=== PATIENT | female | born 1960 | race Caucasian/White ===

== ENCOUNTER → 2016-03-22 | Outpatient (CLI) | payer BC ==
[~2016-03-22] MED LIST: CLON0.5T3 PO; ESTR0.3T PO; FLUO20CA35 PO; NITR1CAP32 PO; POTA-327 PO; PRLSR20 PO; TRIATAB3 PO
[2016-03-22 09:46] LABS: BASO % 0.3 %; BASO ABS # 0.02 K/uL (0-0.2); COMPLETE YES; EOS % 0.7 %; HEMATOCRIT 37.7 % (37-47); IG% 0.1 %; LYMPH ABS # 1.85 K/uL (1.2-3.4); MEAN CELL VOLUME 83.2 fL (80-100); MEAN CORPUSCULAR HGB CONC 33.7 g/dl (32-36); MEAN PLATELET VOLUME 10.3 fL (7.4-10.4); MONO % 8.8 %; NEUT % 65.1 %; PLATELET COUNT 278 K/uL (130-400); RED BLOOD COUNT 4.53 M/uL (4.2-5.4); WHITE BLOOD COUNT 7.39 K/uL (4.8-10.8)
[2016-03-22 10:20] LABS: FERRITIN 7.7 ng/ml (8.0-388.0)
== END | disposition home or self-care (01) ==
LOC: C.LAB 08:15
PROVIDERS: ATTEND Internal Medicine Hematology
DX: D50.9 Iron deficiency anemia, unspecified (principal); Z98.890 Other specified postprocedural states

== ENCOUNTER → 2016-04-27 | Outpatient (CLI) | payer BC ==
--- NOTE | 2016-04-27 08:16 | DIAGNOSTIC IMAGING REPORT ---
CT LUNG SCREENING, LOW DOSE WITH COMPUTER-AIDED DETECTION (CAD) CLINICAL HISTORY: LUNG CA COMPARISON STUDY: 05/10/2015 CT DOSE: 83.74 mGy.cm TECHNIQUE: Low-dose helical CT was acquired without intravenous contrast from lung apices to bases and reconstructed at 2.5 mm every 2 mm. CAD was utilized for this study. FINDINGS: Thyroid: Imaged portions of the thyroid gland are normal in appearance. Thoracic aorta: The thoracic aorta is normal in course and caliber, noting standard 3 vessel arch anatomy. Heart: There are minimal coronary artery calcifications present. Lungs and pleural spaces: There are no pleural effusions. There are postsurgical changes of a prior right upper lobectomy. There is a left lower lobe 2 mm calcified granuloma abutting the fissure. There is a stable 1.5 mm right upper lobe pulmonary nodule, likely postinflammatory. No suspicious bony nodules are visualized. Mediastinum: There is no mediastinal lymphadenopathy. Carolin: Clear. Axilla: Clear. Upper abdomen: No adrenal masses are visualized. The left adrenal gland is not visualized in its entirety. There are postsurgical changes involve the stomach. Skeletal structures: There are no lytic or blastic osseous lesions. IMPRESSION: No evidence of recurrent lung carcinoma. CAD FINDINGS: Overall Lung RADS Category: 1 Lung RADS Management Recommendation: Lung-RADS 1: Continue annual screening in 12 months. Lung RADS Follow Up Date: 2017-04-27 Lung RADS Nodule ID: Electronically signed by: Spike Terry M.D. 04/27/2016 8:14 AM Dictated Date/Time: 04/27/2016 8:07 AM
== END | disposition home or self-care (01) ==
LOC: C.CTS 06:33
PROVIDERS: ATTEND Internal Medicine Hematology
DX: C34.11 Malignant neoplasm of upper lobe, right bronchus or lung (principal)

== ENCOUNTER → 2016-05-18 | Outpatient (CLI) | payer BC ==
[2016-05-18 09:56] LABS: ESTIMATED AVERAGE GLUCOSE 111 mg/dl; HA1C FLAG Normal (Normal)
[2016-05-18 10:05] LABS: BLOOD UREA NITROGEN 14 mg/dl (7-18); BUN/CREATININE RATIO 16.6 (10-20); CALCIUM 9.2 mg/dl (8.5-10.1); CARBON DIOXIDE 33 mmol/L (21-32); CHLORIDE 101 mmol/L (98-107); CREATININE 0.85 mg/dl (0.60-1.20); GLUCOSE 95 mg/dl (70-99); POTASSIUM 3.4 mmol/L (3.5-5.1); SODIUM 142 mmol/L (136-145)
[2016-05-18 10:36] LABS: RATIO 5.7 mcg/mg (0-30.0)
== END | disposition home or self-care (01) ==
LOC: C.LAB 07:10
PROVIDERS: ATTEND Internal Medicine
DX: E11.9 Type 2 diabetes mellitus without complications (principal); I10 Essential (primary) hypertension

== ENCOUNTER → 2016-06-02 | Outpatient (CLI) | payer BC ==
[2016-06-02 16:20] LABS: BASO % 0.2 %; BASO ABS # 0.02 K/uL (0-0.2); EOS % 0.9 %; HEMATOCRIT 39.6 % (37-47); IG% 0.2 %; LYMPH % 27.1 %; LYMPH ABS # 2.44 K/uL (1.2-3.4); MEAN CELL VOLUME 83.4 fL (80-100); MEAN CORPUSCULAR HEMOGLOBIN 28.8 pg (25-34); MEAN PLATELET VOLUME 10.2 fL (7.4-10.4); MONO % 8.5 %; NEUT % 63.1 %; PLATELET COUNT 234 K/uL (130-400); RED BLOOD COUNT 4.75 M/uL (4.2-5.4); WHITE BLOOD COUNT 8.99 K/uL (4.8-10.8)
[2016-06-02 16:24] LABS: COMPLETE YES; MEAN CORPUSCULAR HGB CONC 34.6 g/dl (32-36)
== END | disposition home or self-care (01) ==
LOC: C.LAB 15:59
PROVIDERS: ATTEND Internal Medicine Hematology
DX: D50.9 Iron deficiency anemia, unspecified (principal)

== ENCOUNTER → 2016-07-03 | Outpatient (CLI) | payer BC | END | disposition home or self-care (01) | LOC: C.LABSPEC 17:16 | PROVIDERS: ATTEND Internal Medicine Endocrinology, Diabetes & Metabolism | DX: N39.0 Urinary tract infection, site not specified (principal) ==

== ENCOUNTER → 2016-09-04 | Outpatient (CLI) | payer BC | END | disposition home or self-care (01) | LOC: C.LAB 08:33 | PROVIDERS: ATTEND Nurse Practitioner Adult Health | DX: N39.0 Urinary tract infection, site not specified (principal) ==

== ENCOUNTER → 2016-09-11 | Outpatient (CLI) | payer BC ==
--- NOTE | 2016-09-12 07:41 | MAMMOGRAPHY REPORT ---
BILATERAL DIGITAL SCREENING MAMMOGRAM TOMOSYNTHESIS WITH CAD: 09/11/2016 CLINICAL HISTORY: Routine screening. Patient has no complaints. TECHNIQUE: Breast tomosynthesis in addition to standard 2D mammography was performed. Current study was also evaluated with a Computer Aided Detection (CAD) system. COMPARISON: Comparison is made to exams dated: 09/03/2015 mammogram, 08/31/2014 mammogram, 08/22/2013 hair mogram, 08/21/2012 mammogram, 08/21/2011 mammogram, and 08/18/2010 mammogram - [facility]. BREAST COMPOSITION: There are scattered areas of fibroglandular density in both breasts. FINDINGS: Again noted are multiple bilateral circumscribed sub-centimeters masses scattered throughou t the breasts, not significantly changed compared to prior exams. There are scattered and grouped bi lateral benign-appearing calcifications, many of which demonstrate layering on the MLO views, suggest ing benign milk of calcium. No new suspicious mass, architectural distortion or cluster of microcalc ifications is seen. IMPRESSION: ACR BI-RADS CATEGORY 1: NEGATIVE There is no mammographic evidence of malignancy. A 1 year screening mammogram is recommended. The pa tient will receive written notification of the results. Approximately 10% of breast cancers are not detected with mammography. A negative mammographic report should not delay biopsy if a clinically suggestive mass is present. Alexandrea Coates M.D. ay/:09/11/2016 17:38:27 Photolith Operator: Ashleigh BROWN(Teddy)(Oracio), [facility] letter sent: Normal 1/2 BI-RADS Code: ACR BI-RADS Category 1: Negative
== END | disposition home or self-care (01) ==
LOC: C.MAMM 12:05
PROVIDERS: ATTEND Internal Medicine
DX: Z12.31 Encounter for screening mammogram for malignant neoplasm of breast (principal)

== ENCOUNTER → 2016-09-26 | Outpatient (CLI) | payer BC | END | disposition home or self-care (01) | LOC: C.LAB 13:34 | PROVIDERS: ATTEND Nurse Practitioner Adult Health | DX: N39.0 Urinary tract infection, site not specified (principal) ==

== ENCOUNTER → 2016-11-30 | Outpatient (CLI) | payer BC ==
[2016-11-30 10:10] LABS: BASO % 0.2 %; BASO ABS # 0.01 K/uL (0-0.2); COMPLETE YES; EOS % 0.5 %; HEMATOCRIT 40.2 % (37-47); IG% 0.2 %; LYMPH % 32.9 %; LYMPH ABS # 2.12 K/uL (1.2-3.4); MEAN CELL VOLUME 86.6 fL (80-100); MEAN CORPUSCULAR HEMOGLOBIN 29.1 pg (25-34); MEAN CORPUSCULAR HGB CONC 33.6 g/dl (32-36); MEAN PLATELET VOLUME 10.2 fL (7.4-10.4); NEUT % 59.2 %; PLATELET COUNT 203 K/uL (130-400); RED BLOOD COUNT 4.64 M/uL (4.2-5.4); WHITE BLOOD COUNT 6.45 K/uL (4.8-10.8)
== END | disposition home or self-care (01) ==
LOC: C.LAB 09:14
PROVIDERS: ATTEND Internal Medicine Hematology
DX: C34.11 Malignant neoplasm of upper lobe, right bronchus or lung (principal); D50.9 Iron deficiency anemia, unspecified; Z98.890 Other specified postprocedural states

== ENCOUNTER → 2016-12-18 | Outpatient (CLI) | payer BC | END | disposition home or self-care (01) | LOC: C.LABSPEC 18:06 | PROVIDERS: ATTEND Nurse Practitioner Family | DX: N39.0 Urinary tract infection, site not specified (principal) ==

== ENCOUNTER → 2017-04-30 | Outpatient (CLI) | payer OTHER ==
--- NOTE | 2017-04-30 12:40 | DIAGNOSTIC IMAGING REPORT ---
CT LUNG SCREENING, LOW DOSE WITH COMPUTER-AIDED DETECTION (CAD) CLINICAL HISTORY: 56 years-old Female presenting with RT UPPER LOBE MALIGNANT NEOPLASMS. CT DOSE (mGy.cm): The estimated cumulative dose is 78.37 mGy.cm. TECHNIQUE: Low-dose helical CT was acquired without intravenous contrast from lung apices to bases and reconstructed at 2.5 mm every 2 mm. Computer-Aided detection (CAD) was utilized for this study. A dose lowering technique was used consistent with the principles of ALARA (as low as reasonably achievable). COMPARISON: No previous studies for comparison. FINDINGS: Signal Circuit Designer topogram: Unremarkable. On soft tissue windows, normal thyroid and thoracic inlet. No axillary, supraclavicular, or mediastinal lymphadenopathy. Evaluation of the olamide limited without intravenous contrast. Atherosclerosis of the aorta. Normal heart size. No pericardial or pleural effusion. Upper abdomen normal. On lung windows, postsurgical changes of right upper lobectomy. No focal infiltrate or nodule. Central airways patent. On bone windows, normal osseous structures. CAD FINDINGS: Overall Lung RADS Category: 1 Lung RADS Management Recommendation: Continue annual lung cancer screening. Lung RADS Follow Up Date: 2018-04-30 Lung RADS Nodule ID: IMPRESSION: 1. Postsurgical changes of right upper lobectomy without evidence of recurrent disease or new nodule. Annual lung cancer screening recommended. Electronically signed by: Javi Caceres M.D. 04/30/2017 12:39 PM Dictated Date/Time: 04/30/2017 9:30 AM
== END | disposition home or self-care (01) ==
LOC: C.CTS 09:17
PROVIDERS: ATTEND Internal Medicine Hematology
DX: C34.11 Malignant neoplasm of upper lobe, right bronchus or lung (principal)

== ENCOUNTER → 2017-06-19 | Outpatient (CLI) | payer OTHER ==
[2017-06-19 11:43] LABS: BASO % 0.1 %; BASO ABS # 0.01 K/uL (0-0.2); EOS % 0.2 %; EOS ABS # 0.02 K/uL (0-0.5); HEMATOCRIT 41.1 % (37-47); HEMOGLOBIN 13.9 g/dL (12.0-16.0); IG# 0.02 K/uL (0.00-0.02); LYMPH % 23.3 %; MEAN CELL VOLUME 87.4 fL (80-100); MEAN CORPUSCULAR HEMOGLOBIN 29.6 pg (25-34); MONO % 11.2 %; MONO ABS # 0.91 K/uL (0.11-0.59); PLATELET COUNT 196 K/uL (130-400); RED CELL DISTRIBUTION WIDTH CV 13.2 % (11.5-14.5); RED CELL DISTRIBUTION WIDTH SD 42.5 fL (36.4-46.3); WHITE BLOOD COUNT 8.16 K/uL (4.8-10.8)
[2017-06-19 11:45] LABS: MEAN CORPUSCULAR HGB CONC 33.8 g/dl (32-36)
== END | disposition home or self-care (01) ==
LOC: C.LAB 11:24
PROVIDERS: ATTEND Internal Medicine Hematology
DX: C34.11 Malignant neoplasm of upper lobe, right bronchus or lung (principal); Z98.84 Bariatric surgery status; D50.9 Iron deficiency anemia, unspecified

== ENCOUNTER 2017-06-29 19:37 | Emergency (ER) | payer OTHER ==
[~2017-06-29] VITALS: Ht 167.6 cm; Wt 78.9 kg
[2017-06-29 19:40] VITALS: TEMP 36.7; Ht 167.6 cm; Wt 78.9 kg
[2017-06-29] MEDS ORDERED: DiphenhydrAMINE HCL 50 MG/ML VIAL IV STA (20:12)
[2017-06-29] MEDS ORDERED: METOCLOPRAMIDE HCL INJ 5 MG/ML 2 ML VIAL IV STA (20:12)
[2017-06-29] MEDS ORDERED: SODIUM CHLORIDE 0.9% 1000ML 2,000 ML IV STA (20:12)
[2017-06-29 20:57] LABS: BASO % 0.2 %; BASO ABS # 0.01 K/uL (0-0.2); EOS % 0.6 %; EOS ABS # 0.04 K/uL (0-0.5); HEMATOCRIT 40.3 % (37-47); IG# 0.01 K/uL (0.00-0.02); LYMPH % 35.8 %; LYMPH ABS # 2.29 K/uL (1.2-3.4); MEAN CELL VOLUME 85.6 fL (80-100); MEAN CORPUSCULAR HEMOGLOBIN 29.7 pg (25-34); MEAN CORPUSCULAR HGB CONC 34.7 g/dl (32-36); MEAN PLATELET VOLUME 9.9 fL (7.4-10.4); MONO % 9.1 %; MONO ABS # 0.58 K/uL (0.11-0.59); NEUT % 54.1 %; NEUT ABS # 3.46 K/uL (1.4-6.5); PLATELET COUNT 194 K/uL (130-400); RED CELL DISTRIBUTION WIDTH CV 12.9 % (11.5-14.5); RED CELL DISTRIBUTION WIDTH SD 40.7 fL (36.4-46.3); WHITE BLOOD COUNT 6.39 K/uL (4.8-10.8)
[2017-06-29 21:16] LABS: ALBUMIN 3.8 gm/dl (3.4-5.0); ALT/SGPT 23 U/L (12-78); AST/SGOT 18 U/L (15-37); BLOOD UREA NITROGEN 17 mg/dl (7-18); CALCIUM 8.8 mg/dl (8.5-10.1); CARBON DIOXIDE 31 mmol/L (21-32); CREATININE 1.08 mg/dl (0.60-1.20); GLUCOSE 176 mg/dl (70-99); LIPASE 310 U/L (73-393); POTASSIUM 3.4 mmol/L (3.5-5.1); SODIUM 139 mmol/L (136-145)
--- NOTE | 2017-06-29 21:18 | DIAGNOSTIC IMAGING REPORT ---
HEAD WITHOUT CONTRAST (CT) CLINICAL HISTORY: 56 years-old Female with Headache. Acute headache. TECHNIQUE: Multiple axial CT images of the head were obtained without contrast. A dose lowering technique was utilized adhering to the principles of ALARA. CT DOSE: 612.73 mGy.cm COMPARISON: CT head 11/27/2012. FINDINGS: No acute intracranial hemorrhage, midline shift, intracranial mass, hydrocephalus, territorial ischemia or abnormal extra-axial collection. The calvarium is intact. The paranasal sinuses, mastoid air cells, and middle ear cavities are clear. IMPRESSION: No acute intracranial abnormality. The above report was generated using voice recognition software. It may contain grammatical, syntax or spelling errors. Electronically signed by: Edin Starks M.D. 06/29/2017 9:17 PM Dictated Date/Time: 06/29/2017 9:15 PM
[2017-06-29 21:19] LABS: ALKALINE PHOSPHATASE 61 U/L (45-117)
[2017-06-29] MEDS ORDERED: DEXAMETHASONE **PF** INJ 10 MG/ML VIAL IV ONE (22:00)
--- NOTE | 2017-06-29 22:00 | EMERGENCY ROOM VISIT NOTE ---
History Report prepared by Bang: Oly Naqvi Under the Supervision of: Dr. Tashi Blanc M.D. First contact with patient: 20:09 Chief Complaint: HEADACHE Stated Complaint: SEVERE HEADACHE History of Present Illness The patient is a 56 year old female who presents to the Emergency Room with complaints of worsening headache starting 0800 this morning. The pain started while she was sitting at her desk at work. She did not have any pain when she woke up. The headache gradually worsened. She is now having intermittent sharp pain in the right side of her head into her right ear every 8-10 seconds. She denies any history of headaches. She has been taking Tylenol all day to no significant relief. The light does not bother her. She has been feeling fatigued for the past week. She denies any cough, nasal congestion, urinary symptoms, chest pain, or SOB. She has a history of hypertension, anxiety, lung cancer, cholecystectomy, and hysterectomy. She has been 5 years without cancer. She notes that she was exposed to high radon in the past. She is a former smoker. She had blood work last week which showed high monocytes. She drinks a glass of wine twice a week. She has been drinking plenty of water. Source of History: patient Onset: 0800 Position: head Quality: sharp Timing: worsening Associated Symptoms: No cough, No chest pain, No SOB, No urinary symptoms Note: Pt reports right ear pain. Review of Systems See HPI for pertinent positives and negatives. A total of ten systems were reviewed and were otherwise negative. Past Medical & Surgical Medical Problems: (1) Appendectomy (2) Benign hypertension (3) Cholecystectomy (4) Non-small cell lung cancer (5) pneumonectomy(right upper lobe) Family History Diabetes mellitus FH: cancer FH: heart disease Gout Hypertension Kidney disease Kidney stones Social History Smoking Status: Never Smoker Alcohol Use: occasionally Marital Status: Housing Status: lives with significant other Occupation Status: employed Current/Historical Medications Scheduled Estrogens, Conjugated (Premarin), 0.3 MG PO QAM Fluoxetine (Prozac), 20 MG PO QAM Nitrofurantoin Macrocrystals (Macrodantin), 100 MG PO DAILY Omeprazole (Prilosec Otc *), 20 MG PO DAILY Potassium Chloride (Micro-K Ext Rel), 10 MEQ PO QAM Triamterene/Hctz (Triamterene/Hctz 37.5-25MG), 1 TAB PO QAM Scheduled PRN Clonazepam (Klonopin), 0.5 MG PO HS PRN Allergies Coded Allergies: No Known Allergies (Verified , 06/01/12) Physical Exam Vital Signs Date Time Temp Pulse Resp B/P (MAP) Pulse Ox O2 Delivery O2 Flow Rate FiO2 06/29/17 22:21 81 20 154/84 99 06/29/17 19:40 36.7 79 18 178/90 98 Room Air Physical Exam GENERAL: Awake, fatigued, uncomfortable-appearing, in no distress HENT: Normocephalic, atraumatic. Dry mucous membranes, otherwise oropharynx unremarkable. EYES: Normal conjunctiva. Sclera non-icteric. NECK: Supple. No nuchal rigidity. FROM. No JVD. RESPIRATORY: Clear to auscultation. CARDIAC: Regular rate, normal rhythm. Extremities warm and well perfused. Pulses equal. ABDOMEN: Soft, non-distended. No tenderness to palpation. No rebound or guarding. No masses. RECTAL: Deferred. MUSCULOSKELETAL: Chest examination reveals no tenderness. The back is symmetrical on inspection without obvious abnormality. There is no CVA tenderness to palpation. No joint edema. LOWER EXTREMITIES: Calves are equal size bilaterally and non-tender. No edema. No discoloration. NEURO: Normal sensorium. No sensory or motor deficits noted. Normal cerebellar function with [id number]-ko-[id number], alternating palms, ktoq-[id number]. SKIN: No rash or jaundice noted. Medical Decision & Procedures ER Provider Diagnostic Interpretation: Radiology results as stated below per my review and radiologist interpretation: HEAD WITHOUT CONTRAST (CT) CLINICAL HISTORY: 56 years-old Female with Headache. Acute headache. TECHNIQUE: Multiple axial CT images of the head were obtained without contrast. A dose lowering technique was utilized adhering to the principles of ALARA. CT DOSE: 612.73 mGy.cm COMPARISON: CT head 11/27/2012. FINDINGS: No acute intracranial hemorrhage, midline shift, intracranial mass, hydrocephalus, territorial ischemia or abnormal extra-axial collection. The calvarium is intact. The paranasal sinuses, mastoid air cells, and middle ear cavities are clear. IMPRESSION: No acute intracranial abnormality. The above report was generated using voice recognition software. It may contain grammatical, syntax or spelling errors. Electronically signed by: Edin Starks M.D. 06/29/2017 9:17 PM Dictated Date/Time: 06/29/2017 9:15 PM Laboratory Results 06/29/17 20:47 Red Blood Count 4.71, Mean Corpuscular Volume 85.6, Mean Corpuscular Hemoglobin 29.7, Mean Corpuscular Hemoglobin Concent 34.7, Mean Platelet Volume 9.9, Neutrophils (%) (Auto) 54.1, Lymphocytes (%) (Auto) 35.8, Monocytes (%) (Auto) 9.1, Eosinophils (%) (Auto) 0.6, Basophils (%) (Auto) 0.2, Neutrophils # (Auto) 3.46, Lymphocytes # (Auto) 2.29, Monocytes # (Auto) 0.58, Eosinophils # (Auto) 0.04, Basophils # (Auto) 0.01 06/29/17 20:47 Test 06/29/17 20:47 06/29/17 21:50 White Blood Count 6.39 K/uL (4.8-10.8) Red Blood Count 4.71 M/uL (4.2-5.4) Hemoglobin 14.0 g/dL (12.0-16.0) Hematocrit 40.3 % (37-47) Mean Corpuscular Volume 85.6 fL (80-100) Mean Corpuscular Hemoglobin 29.7 pg (25-34) Mean Corpuscular Hemoglobin Concent 34.7 g/dl (32-36) Platelet Count 194 K/uL (130-400) Mean Platelet Volume 9.9 fL (7.4-10.4) Neutrophils (%) (Auto) 54.1 % Lymphocytes (%) (Auto) 35.8 % Monocytes (%) (Auto) 9.1 % Eosinophils (%) (Auto) 0.6 % Basophils (%) (Auto) 0.2 % Neutrophils # (Auto) 3.46 K/uL (1.4-6.5) Lymphocytes # (Auto) 2.29 K/uL (1.2-3.4) Monocytes # (Auto) 0.58 K/uL (0.11-0.59) Eosinophils # (Auto) 0.04 K/uL (0-0.5) Basophils # (Auto) 0.01 K/uL (0-0.2) RDW Standard Deviation 40.7 fL (36.4-46.3) RDW Coefficient of Variation 12.9 % (11.5-14.5) Immature Granulocyte % (Auto) 0.2 % Immature Granulocyte # (Auto) 0.01 K/uL (0.00-0.02) Anion Gap 3.0 mmol/L (3-11) Est Creatinine Clear Calc Drug Dose 60.2 ml/min Estimated GFR () 65.5 Estimated GFR (Non- 56.5 BUN/Creatinine Ratio 15.9 (10-20) Calcium Level 8.8 mg/dl (8.5-10.1) Total Bilirubin 0.3 mg/dl (0.2-1) Direct Bilirubin < 0.1 mg/dl (0-0.2) Aspartate Amino Transf (AST/SGOT) 18 U/L (15-37) Alanine Aminotransferase (ALT/SGPT) 23 U/L (12-78) Alkaline Phosphatase 61 U/L (45-117) Total Protein 7.0 gm/dl (6.4-8.2) Albumin 3.8 gm/dl (3.4-5.0) Lipase 310 U/L (73-393) Urine Color YELLOW Urine Appearance CLEAR (CLEAR) Urine pH 6.5 (4.5-7.5) Urine Specific Aubrey 1.014 (1.000-1.030) Urine Protein NEG (NEG) Urine Glucose (UA) NEG (NEG) Urine Ketones NEG (NEG) Urine Occult Blood NEG (NEG) Urine Nitrite NEG (NEG) Urine Bilirubin NEG (NEG) Urine Urobilinogen NEG (NEG) Urine Leukocyte Esterase NEG (NEG) Laboratory results reviewed by me Medications Administered Medications (Trade) Dose Ordered Sig/Fawn Route Start Time Stop Time Status Last Admin Dose Admin Sodium Chloride 2,000 ml @ 999 mls/hr Q2H1M STAT IV 06/29/17 20:12 06/29/17 22:12 DC 06/29/17 20:12 999 MLS/HR Metoclopramide HCl (Reglan Inj) 10 mg NOW STAT IV 06/29/17 20:12 06/29/17 20:19 DC 06/29/17 20:12 10 MG Diphenhydramine HCl (Benadryl Inj) 25 mg NOW STAT IV 06/29/17 20:12 06/29/17 20:19 DC 06/29/17 20:12 25 MG Dexamethasone Sodium Phosphate (Dexamethasone Inj Pf) 10 mg NOW ONCE IV 06/29/17 22:00 06/29/17 22:01 DC 06/29/17 22:09 10 MG ED Course 2010: The patient was evaluated in room C7. A complete history and physical exam was performed. 2158: I reevaluated the patient. Discussed results and discharge instructions: She verbalized understanding and agreement. The patient is ready for discharge. Medical Decision I reviewed the patient's past medical history, medications, and the nursing notes as described above. Differential diagnosis: Etiologies such as migraine headache, meningitis, sinusitis, CO exposure, ICH, SAH, infection, tumor, headache, sinus thrombosis, arterial dissection, as well as others were entertained. The patient is a 56-year-old woman with a past medical history of remote lung cancer who presents to emergency department with a gradual onset headache since this morning in the setting of generalized fatigue over the past week per hpi. On arrival the patient is fatigued and uncomfortable but no acute distress, afebrile stable vital signs. She is neuro intact including normal cerebellar function with qblsgj-xu-hkci, alternating palms, ouhb-iu-bayw. CT head unremarkable. Labs unremarkable including WBC within normal limits. Patient feeling significantly improved after IV fluids, Reglan, Benadryl. Given the patient's improvement and reassuring workup symptoms most consistent with a tension headache. Patient's progressive headache is not consistent with a SAH thus LP not indicated at this time. Patient was given dose of dexamethasone to help prevent headache recurrence. Plan for PCP follow-up. Findings and plan for follow-up reviewed with patient. Patient agreeable and d/c'd per discharge instructions. Medication Reconcilliation Current Medication List: was personally reviewed by me Blood Pressure Screening Patient's blood pressure: Elevated blood pressure Blood pressure disposition: Referred to PCP Impression Primary Impression: Tension headache Scribe Attestation The scribe's documentation has been prepared under my direction and personally reviewed by me in its entirety. I confirm that the note above accurately reflects all work, treatment, procedures, and medical decision making performed by me. Departure Information Dispostion Home / Self-Care Referrals Nayan Fatima M.D. (PCP) Patient Instructions Headaches Tension, [facility] Additional Instructions Please follow up with your primary care physician on Sunday for re-evaluation. Your symptoms are most likely due to a tension headache. Otherwise, your exam, lab results, and CT scan did not show signs of an emergent condition at this time. Acetaminophen or ibuprofen for pain and fevers as needed. Drink plenty of fluids to ensure hydration. Return to the emergency department for worsening symptoms as described in the accompanying instructions.
[2017-06-29 22:21] VITALS: BP 154/84; PULSE 81; O2SAT 99
== END 2017-06-29 22:22 | disposition home or self-care (01) ==
LOC: C.EDB 19:38 → C.EDC 22:22
DX: G44.209 Tension-type headache, unspecified, not intractable (principal); Z79.899 Other long term (current) drug therapy; I10 Essential (primary) hypertension; Z85.118 Personal history of other malignant neoplasm of bronchus and lung

== ENCOUNTER → 2017-07-16 | Outpatient (CLI) | payer OTHER ==
--- NOTE | 2017-07-16 11:25 | DIAGNOSTIC IMAGING REPORT ---
CHEST 2 VIEWS ROUTINE CLINICAL HISTORY: 56 years-old Female presenting with NIGHT SWEATS. TECHNIQUE: PA and lateral views of the chest were obtained. COMPARISON: 06/01/[address] from 05/10/2015. FINDINGS: Cardiomediastinal silhouette normal. Postsurgical changes of right upper lobectomy are better appreciated on most recent chest CT from 2016. Lungs and pleural spaces clear. Osseous structures normal. Cholecystectomy clips noted. IMPRESSION: 1. No acute cardiopulmonary disease. Evaluation for recurrent or metastatic disease is significantly limited on radiograph. Given the patient's clinical history of malignancy, chest CT would be appropriate for screening if this is of clinical concern. Electronically signed by: Javi Caceres M.D. 07/16/2017 11:23 AM Dictated Date/Time: 07/16/2017 11:21 AM
== END | disposition home or self-care (01) ==
LOC: C.RAD 11:00
PROVIDERS: ATTEND Internal Medicine
DX: R61 Generalized hyperhidrosis (principal)

== ENCOUNTER → 2017-09-18 | Outpatient (CLI) | payer OTHER ==
[~2017-09-18] MED LIST changes: -CLON0.5T3 PO; +CLON0.5T9 PO
--- NOTE | 2017-09-20 07:58 | MAMMOGRAPHY REPORT ---
UNILATERAL RIGHT DIGITAL DIAGNOSTIC MAMMOGRAM TOMOSYNTHESIS AND RIGHT ULTRASOUND: 09/18/2017 CLINICAL HISTORY: Callback from screening mammography for a 10 mm asymmetry in the posterior right br east along the posterior nipple line on the cc view, that was increasingly prominent compared to prio r mammograms including a recent prior mammogram dated 08/06/2017. Patient has a family history of sacha st cancer = sister. She also reports persistent bothersome focal pain in the 12:00 right breast, that has persisted since diagnostic workup dated 08/06/2017. TECHNIQUE: Spot compression right CC and MLO 2D and tomosynthesis images were obtained. COMPARISON: Comparison is made to exams dated: 09/12/2017 mammogram, 08/06/2017 mammogram, 09/11/2016 m ammogram, 09/03/2015 mammogram, 08/31/2014 mammogram, and 08/22/2013 mammogram - [facility]. Ultrasound of the right breast was performed. BREAST COMPOSITION: The tissue of right breast is heterogeneously dense, which may obscure small mass es. FINDINGS: The spot compression CC tomosynthesis view of the right breast demonstrates decreased promi nence of the 10 mm asymmetry in the posterior right breast along the posterior nipple line, located a pproximately 10 cm distal to the nipple. The current appearance is very similar to prior mammograms including the 2017, 2016, 2015 and 2014 exams, suggesting benignity. The increased prominence of the previously observed asymmetry may have been positional, representing normal overlapping tissue altho ugh further evaluation with ultrasound was performed. There is no other spiculated or irregular mass , focal area of architectural distortion or new suspicious calcifications. There is generally stable nodularity throughout the right breast. Targeted ultrasound was performed in the 12:00, retroareolar and 6:00 axes of the right breast to ass ess for the decreasing asymmetry. Additional targeted ultrasound was performed in the area of persis tent pain pointed out by the patient in the 12:00 axis. Numerous anechoic benign simple cysts and cy st clusters are seen, particularly in the right 6:30 axis, 2 cm from the nipple, a cyst cluster measu res 6.6 x 3.7 x 9.4 mm. Another anechoic cyst is seen in the 7:00 right breast, 1 cm from the nipple , measuring 3.7 x 2.2 x 2.8 mm. A circumscribed hypoechoic cystic-appearing mass is again noted in t he 12:00 to 12:30 right breast, 2 cm from the nipple, and the patient currently reported pain over th is mass, which measures 5.4 x 4.3 x 5.0 mm. Given the persistent pain, could attempt ultrasound-guid ed cyst aspiration for symptomatic relief. If the mass does not aspirate, core needle biopsy could b e performed at the same time. IMPRESSION: ACR BI-RADS CATEGORY 4: SUSPICIOUS, ULTRASOUND ACR BI-RADS CATEGORY 4: SUSPICIOUS 1. The increasingly prominent 10 mm asymmetry in the posterior right breast, along the posterior nip ple line on the cc view decreased with additional spot compression tomosynthesis images and there was no suspicious sonographic correlate identified, suggesting it represented normal overlapping tissue and was increasingly prominent due to positioning. This finding is considered benign, given that the pattern has reverted to several prior mammograms dating back to at least 2014. 2. The patient is experiencing persistent pain in the 12:30 right breast, and there is a hypoechoic cystic-appearing 5.4 mm mass in that location for which ultrasound-guided cyst aspiration could be at tempted. If the mass does not completely aspirate, core needle biopsy could be performed at the same time. 3. Numerous other simple cysts and cyst clusters are seen throughout the right breast on targeted ult rasound, compatible with benign fibrocystic change. These results and recommendations were discussed with the patient at the time of the exam. She tenta tively scheduled the right breast procedure prior to leaving our department. Some breast cancers are not detected with mammography. A negative mammographic report should not juan y biopsy if a clinically suggestive mass is present. Alexandrea Coates M.D. ay/:09/18/2017 20:34:10 Coffee Shop Attendant: RT Min(Teddy)(M), [facility] letter sent: Abnormal 4/5 OVERALL STUDY BIRADS: 4 Suspicious abnormality
== END | disposition home or self-care (01) ==
LOC: C.MAMM 13:21
PROVIDERS: ATTEND Internal Medicine
DX: N64.89 Other specified disorders of breast (principal); N64.4 Mastodynia; N60.11 Diffuse cystic mastopathy of right breast; N63.12 Unspecified lump in the right breast, upper inner quadrant

== ENCOUNTER → 2017-10-01 | Outpatient (CLI) | payer OTHER ==
--- NOTE | 2017-10-01 11:34 | Discharge Instructions ---
Discharge Instructions Procedure Procedure Date: Oct 01, 2017. Reason for visit: Painful Right Breast Mass. Discharge Discharge Date: Oct 01, 2017. Discharge Diagnosis: post right breast ultrasound guided cyst aspiration and core biopsy of a painful mass 12:30 axis Instructions Activity Recommendations: Additional Limitations (see below) Return to School/Work: no limitations Recommended Home Diet: No Limitations Provider Instructions: ACTIVITY RECOMMENDATIONS: * No lifting, pushing, pulling or exercising the affected side for three days. RETURN TO SCHOOL/WORK: * You may return to work/school after the procedure, but do not perform any strenuous activities for 24 to 48 hours. MEDICATIONS: * Tylenol (two 325 mg) every four to six hours if needed for mild pain (if not allergic to Tylenol). DIET: * Resume previous diet. SPECIAL CARE INSTRUCTIONS: * Keep biopsy site dry for 24 hours. May shower after 24 hours, but do not soak (bathe) incision. May remove Tegaderm (plastic patch) 24 hours after procedure * Leave the steri-strips on for one week. Allow the steri-strips to fall off by themselves. If not off after one week, you may remove them. You may place a Bandaid crosswise over the strips, if desired. * Apply ice 10 minutes on and 10 minutes off as needed. * Wear a bra at bedtime to sleep more comfortably for 2-3 days. * Your referring physician should have the results after approximately 5 to 7 business days. * Call for unusual bleeding, fever, drainage, etc or if you have any questions call [phone] during normal business hours or after hours call Dr Coates, . FOLLOW UP VISIT: Follow-up with Referring Physician as scheduled. Allergies Coded Allergies: No Known Allergies (Verified , 06/01/12) Ludivina Greenfield Recommendations: Call your doctor if: * Temperature above 101 degrees * Pain not relieved by pain medicine ordered * There is increased drainage or redness from any incision * You have any unanswered questions or concerns. Your Doctors Instructions noted above were prepared by provider Alexandrea Coates. Patient Signature Section: Patient Instructions Signature Page Cedric Davilalenin Patient (or Guardian) Signature/Date: I have read and understand the instructions given to me by my caregivers. Caregiver/RN/Doctor Signature/Date: The above-named patient and/or guardian has received patient instructions on this date. + Original Patient Signature Page (only) stays with chart. Please make copy for patient.
--- NOTE | 2017-10-01 15:10 | MAMMOGRAPHY REPORT ---
ASPIRATION RIGHT BREAST: 10/01/2017 CLINICAL HISTORY: 56-year-old woman initially presented with right breast pain, found to have focal p ain with pressure/ultrasound scanning over a hypoechoic cystic versus solid 5 mm mass in the 12:30 ri ght breast. Patient presents for ultrasound-guided cyst aspiration versus core biopsy. Please refer to the report from right breast ultrasound-guided core biopsy performed at the same time for full detail. IMPRESSION: ASPIRATION Please refer to the report from right breast ultrasound-guided core biopsy performed at the same time for full detail. Alexandrea Coates M.D. ay/:10/01/2017 12:13:26 Attending Technologist: JEROD Barahona)(Oracio), [facility] Merchandise Planning Manager: Alexandrea Coates, [facility]
--- NOTE | 2017-10-01 15:10 | MAMMOGRAPHY REPORT ---
THIS REPORT HAS BEEN AMENDED. ULTRASOUND GUIDED BIOPSY RIGHT BREAST: 10/01/2017 CLINICAL HISTORY: Patient initially presented with right breast pain and an indeterminate hypoechoic solid versus cystic mass measuring 5 mm was identified in the 12:30 right breast, 2 cm from the nippl e, in the area of pain. She presents for ultrasound-guided cyst aspiration versus core needle biopsy. COMPARISON: Comparison is made to exams dated: 09/18/2017 ultrasound, 09/18/2017 mammogram, 09/12/2017 mammogram, 08/06/2017 mammogram, 08/06/2017 ultrasound, and 09/11/2016 mammogram - [facility]. PATIENT CONSENT: The procedures of both ultrasound-guided cyst aspiration and core needle biopsy risk s, benefits and alternatives were discussed with the patient. Informed consent was obtained both verb ally and in writing. Specific risks to this procedure include: bleeding, infection, puncture of kandace cent structure, nontarget biopsy, sampling error, pain, metal allergy and medication reaction. PROCEDURE DESCRIPTION: A time out was performed and the right breast was agreed as the site of biopsy . The skin was prepped and draped in the usual sterile fashion. The hypoechoic indeterminate 5 mm mas s in the 12:30 right breast was identified. Subcutaneous and intraparenchymal 1% buffered lidocaine, with and without epinephrine, was administered as local anesthesia. First cyst aspiration was attem pted, using an 18-gauge needle which was placed directly into the mass and aspiration was performed. The mass nearly completely resolved and approximately 1 cc of thick whitish/yellowish fluid was aspi rated and rinsed in [employer]. The 12:30 right breast was rechecked with ultrasound and the mass appea red to have reaccumulated immediately after aspiration, therefore the decision was made to proceed wi ultrasound-guided core biopsy. A small skin incision was made. Additional 1% buffered lidocaine was administered. Through the inci adrián, 3 samples were taken with a 14 gauge Achieve biopsy device. A ribbon shaped metallic marker was placed at the biopsy site. Hemostasis was achieved after manual compression. The patient tolerated t he procedure well and there was no immediate complication. The samples were sent to the pathology de partment in an appropriately labeled container. Postprocedure right CC and ML tomosynthesis images were obtained. A new ribbon-shaped biopsy marker clip is identified in the 12:00 - 12:30 anterior right breast. No significant postbiopsy hematoma is seen. IMPRESSION: ULTRASOUND GUIDED BIOPSY Status post right breast ultrasound-guided cyst aspiration and core biopsy of an indeterminate solid versus cystic tender 5mm mass in the 12:30 anterior right breast, with ribbon-shaped biopsy marker cl ip placed at the site. The patient will receive notification of the biopsy results from her referring physician. Alexandrea Coates M.D. ay/:10/01/2017 14:41:55 Attending Technologist: RT [place](Teddy)(M), [facility] Java Development Manager: Alexandrea Coates, [facility] AMENDMENT: 10/03/2017 Alexandrea Coates M.D. Pathology results from the ultrasound-guided cyst aspiration and subsequent core biopsy of a 5 mm mas s in a painful area within the 12:30 right breast yielded fibrocystic change, usual ductal hyperplasi a, foam cells and a few benign ductal epithelial cells. The pathology results are benign and concord ant with the imaging appearance, likely representing a complicated cyst. Would recommend follow-up b ased on clinical grounds and also bilateral screening mammography in 1 year.
--- NOTE | 2017-10-01 15:12 | MAMMOGRAPHY REPORT ---
UNILATERAL RIGHT DIGITAL DIAGNOSTIC MAMMOGRAM TOMOSYNTHESIS: 10/01/2017 CLINICAL HISTORY: Painful 5 mm circumscribed hypoechoic mass in the 12:30 right breast. Patient prese nts for attempted cyst aspiration versus core needle biopsy. Please refer to the report from right breast ultrasound-guided core biopsy performed at the same time for full detail. IMPRESSION: POST PROCEDURE IMAGING FOR MARKER PLACEMENT Please refer to the report from right breast ultrasound-guided core biopsy performed at the same time for full detail. Some breast cancers are not detected with mammography. A negative mammographic report should not juan y biopsy if a clinically suggestive mass is present. Alexandrea Coates M.D. ay/:10/01/2017 11:35:22 Work Study Student: RT [place](R)(M), [facility] BI-RADS Code: Post Procedure Imaging For Marker Placement
== END | disposition home or self-care (01) ==
LOC: C.MAMM 10:14
PROVIDERS: ATTEND Internal Medicine
DX: N60.91 Unspecified benign mammary dysplasia of right breast (principal)

== ENCOUNTER → 2017-10-10 | Outpatient (CLI) | payer OTHER | END | disposition home or self-care (01) | LOC: C.LAB 07:13 | PROVIDERS: ATTEND Psychiatry & Neurology Neurology | DX: R53.81 Other malaise (principal); R53.83 Other fatigue ==

== ENCOUNTER → 2017-10-11 | Outpatient (CLI) | payer OTHER ==
[2017-10-11 09:57] LABS: BLOOD UREA NITROGEN 16 mg/dl (7-18); CALCIUM 8.7 mg/dl (8.5-10.1); CARBON DIOXIDE 30 mmol/L (21-32); CHOLESTEROL 155 mg/dl (0-200); CREATININE 0.89 mg/dl (0.60-1.20); GLUCOSE 88 mg/dl (70-99); LDL CHOLESTEROL (DIRECT) 86 mg/dl; POTASSIUM 3.6 mmol/L (3.5-5.1); SODIUM 140 mmol/L (136-145)
== END | disposition home or self-care (01) ==
LOC: C.LAB 07:21
PROVIDERS: ATTEND Internal Medicine
DX: Z00.00 Encounter for general adult medical examination without abnormal findings (principal); E78.5 Hyperlipidemia, unspecified

== ENCOUNTER → 2017-10-15 | Outpatient (CLI) | payer OTHER | END | disposition home or self-care (01) | LOC: C.LAB 10:48 | PROVIDERS: ATTEND Urology | DX: N39.0 Urinary tract infection, site not specified (principal); R30.0 Dysuria; N39.41 Urge incontinence ==